=== PATIENT | male | born 1985 | race Caucasian/White ===

== ENCOUNTER 2020-06-08 11:44 | Emergency (ER) | payer OTHER ==
[~2020-06-08] VITALS: Ht 188 cm; Wt 86.2 kg
[2020-06-08] MEDS ORDERED: KEFLEX500 M1 PO (13:50)
[2020-06-08 14:07] VITALS: BP 129/72
== END 2020-06-08 14:07 | disposition home or self-care (01) ==
LOC: ER 11:44
DX: S51.811A Laceration without foreign body of right forearm, initial encounter (principal); W26.8XXA Contact with other sharp object(s), not elsewhere classified, initial encounter; Y93.89 Activity, other specified; Y92.89 Other specified places as the place of occurrence of the external cause; Y99.8 Other external cause status